=== PATIENT | female | born 1970 | race Caucasian/White ===

== ENCOUNTER → 2021-09-01 | Outpatient (REF) | payer OTHER ==
[~2021-09-01] MED LIST: CIPR-249 PO; FISH500C PO; KETO10TAB PO; LEXA1TAB2 PO; MULTCAP PO; PERC5TAB12 PO; TAMS0.4C2 PO; ZOFR4TAB14 PO
== END ==
LOC: M SFHCDERM 17:25
PROVIDERS: ATTEND Nurse Practitioner Family
DX: D22.39 Melanocytic nevi of other parts of face (principal)

== ENCOUNTER → 2022-07-13 | Outpatient (CLI) | payer OTHER ==
[2022-07-13 11:00] LABS: BASO # 0.1 10^3/uL (0.0-0.2); BASO % 0.9 % (0.0-1.0); EOS # 0.1 10^3/uL (0.0-0.5); EOS % 1.3 % (0.0-3.0); HEMATOCRIT 45.1 % (36.0-47.0); HEMOGLOBIN 14.4 g/dl (12.0-15.5); MEAN CORPUSCULAR HEMOGLOBIN 26.8 pg (27.0-33.0); MEAN CORPUSCULAR HGB CONC 31.9 g/dl (32.0-36.5); MEAN CORPUSCULAR VOLUME 83.8 fl (80.0-96.0); MONO # 0.5 10^3/uL (0.0-0.8); MONO % 6.8 % (2.0-8.0); NEUTROPHILS # 4.1 10^3/uL (1.5-8.5); PLATELET COUNT, AUTOMATED 250 10^3/uL (150-450); RED BLOOD COUNT 5.38 10^6/uL (4.00-5.40); WHITE BLOOD COUNT 6.8 10^3/uL (4.0-10.0)
[2022-07-13 11:28] LABS: ALBUMIN 3.4 G/DL (3.2-5.2); ALKALINE PHOSPHATASE 119 U/L (46-116); ALT/SGPT 29 U/L (7.0-40); AST/SGOT 21 U/L (<34); BILIRUBIN,TOTAL 0.5 MG/DL (0.3-1.2); BLOOD UREA NITROGEN 10 MG/DL (9-23); CALCIUM LEVEL 8.9 MG/DL (8.5-10.1); CARBON DIOXIDE LEVEL 26 MMOL/L (20-31); CHLORIDE LEVEL 105 MMOL/L (98-107); CREATININE FOR GFR 0.68 MG/DL (0.55-1.30); GLOMERULAR FILTRATION RATE > 60.0 (>51); GLUCOSE, FASTING 78 MG/DL (60-100); POTASSIUM SERUM 4.2 MMOL/L (3.5-5.1); SODIUM LEVEL 138 MMOL/L (136-145); TOTAL PROTEIN 6.8 G/DL (5.7-8.2)
[2022-07-13 11:29] LABS: T UPTAKE 24.6 % (22.5-37.0); THYROID STIMULATING HORMONE 1.305 uIU/ML (0.55-4.78); THYROXINE (T4) 12.1 UG/DL (4.5-10.9)
[2022-07-13 11:30] LABS: FOLLICLE STIMULATING HORMONE 25.1 mIU/ML
[2022-07-13 11:31] LABS: LUTEINIZING HORMONE 8.4 mIU/ML
== END ==
LOC: M LAB 09:59
PROVIDERS: ATTEND Nurse Practitioner Family
DX: L29.9 Pruritus, unspecified (principal)

== ENCOUNTER → 2024-09-09 | Outpatient (CLI) | payer OTHER | LOC: M LAB 17:28 | PROVIDERS: ATTEND Allergy & Immunology Allergy | DX: L50.1 Idiopathic urticaria (principal) ==